=== PATIENT | male | born 1985 | race American Indian/Alaskan Native ===

== ENCOUNTER 2017-06-16 13:21 | Emergency (ER) | payer SELFPAY ==
[2017-06-16] MEDS ORDERED: DUONEB *Not for PRN Use IH ONE (14:24)
[2017-06-16] MEDS ORDERED: MOTRIN PO ONE (14:24)
--- NOTE | 2017-06-16 14:25 | Emergency Department Report ---
ED ENT HPI - General Chief complaint: Sore Throat Stated complaint: SORE THROAT Time Seen by Provider: 06/16/17 14:03 Source: patient Mode of arrival: Ambulatory Limitations: No Limitations - History of Present Illness Initial comments: 32-year-old male past medical history none presents with complaint of 5-6 days of sore throat and productive cough of yellowish brownish sputum. Patient is awake alert and oriented 3 fully lucid no audible wheezing or stridor. Subjective fever and chills reported. Denies sick contacts at home. States he has had a hoarse voice. MD complaint: sore throat - Related Data Previous Rx's Medication Instructions Recorded Last Taken Type Doxycycline [Vibramycin CAP] 100 mg PO Q12HR #14 capsule 05/17/15 Unknown Rx Famotidine [Pepcid] 20 mg PO DAILY #30 tablet 05/17/15 Unknown Rx Hyoscyamine Subl [Levsin Sl 0.125 0.125 mg SL Q8HR PRN #20 tab 05/17/15 Unknown Rx TAB] Mupirocin [Bactroban 2% OINT] 1 applic TP TID #1 tube 05/17/15 Unknown Rx Ondansetron [Zofran ODT TAB] 8 mg PO Q8HR PRN #20 tab.rapdis 05/17/15 Unknown Rx Albuterol Sulfate [Ventolin Hfa] 1 puff IH Q4H PRN #1 hfa.aer.ad 06/16/17 Unknown Rx Azithromycin [Zithromax Z-BIJU] 250 mg PO QDAY #1 pack 06/16/17 Unknown Rx Dextromethorphan/Benzocaine 1 each PO Q4H PRN #1 box 06/16/17 Unknown Rx [Cepacol Sorethroat-Cough Karo] Ibuprofen [Motrin] 800 mg PO Q8HR PRN #30 tablet 06/16/17 Unknown Rx Allergies Allergy/AdvReac Type Severity Reaction Status Date / Time coconut oil Allergy Rash Verified 06/16/17 13:46 ED Dental HPI - General Chief complaint: Sore Throat Stated complaint: SORE THROAT Time Seen by Provider: 06/16/17 14:03 Source: patient Mode of arrival: Ambulatory Limitations: No Limitations - Related Data Previous Rx's Medication Instructions Recorded Last Taken Type Doxycycline [Vibramycin CAP] 100 mg PO Q12HR #14 capsule 05/17/15 Unknown Rx Famotidine [Pepcid] 20 mg PO DAILY #30 tablet 05/17/15 Unknown Rx Hyoscyamine Subl [Levsin Sl 0.125 0.125 mg SL Q8HR PRN #20 tab 05/17/15 Unknown Rx TAB] Mupirocin [Bactroban 2% OINT] 1 applic TP TID #1 tube 05/17/15 Unknown Rx Ondansetron [Zofran ODT TAB] 8 mg PO Q8HR PRN #20 tab.rapdis 05/17/15 Unknown Rx Albuterol Sulfate [Ventolin Hfa] 1 puff IH Q4H PRN #1 hfa.aer.ad 06/16/17 Unknown Rx Azithromycin [Zithromax Z-BIJU] 250 mg PO QDAY #1 pack 06/16/17 Unknown Rx Dextromethorphan/Benzocaine 1 each PO Q4H PRN #1 box 06/16/17 Unknown Rx [Cepacol Sorethroat-Cough Karo] Ibuprofen [Motrin] 800 mg PO Q8HR PRN #30 tablet 06/16/17 Unknown Rx Allergies Allergy/AdvReac Type Severity Reaction Status Date / Time coconut oil Allergy Rash Verified 06/16/17 13:46 ED Review of Systems ROS: Stated complaint: SORE THROAT Other details as noted in HPI Constitutional: denies: chills, fever Eyes: denies: eye pain, eye discharge, vision change ENT: denies: ear pain, throat pain Respiratory: denies: cough, shortness of breath, wheezing Cardiovascular: denies: chest pain, palpitations Endocrine: no symptoms reported Gastrointestinal: denies: abdominal pain, nausea, diarrhea Genitourinary: denies: urgency, dysuria Musculoskeletal: denies: back pain, joint swelling, arthralgia Skin: denies: rash, lesions Neurological: denies: headache, weakness, paresthesias Psychiatric: denies: anxiety, depression Hematological/Lymphatic: denies: easy bleeding, easy bruising ED Past Medical Hx - Past Medical History Previous Medical History?: Yes Additional medical history: HS- Hidradenitis Suppurativa. Sciatica - Surgical History Past Surgical History?: Yes Hx Appendectomy: Yes - Social History Smoking Status: Never Smoker Substance Use Type: Marijuana - Medications Home Medications: Home Medications Medication Instructions Recorded Confirmed Last Taken Type Doxycycline [Vibramycin CAP] 100 mg PO Q12HR #14 capsule 05/17/15 Unknown Rx Famotidine [Pepcid] 20 mg PO DAILY #30 tablet 05/17/15 Unknown Rx Hyoscyamine Subl [Levsin Sl 0.125 0.125 mg SL Q8HR PRN #20 tab 05/17/15 Unknown Rx TAB] Mupirocin [Bactroban 2% OINT] 1 applic TP TID #1 tube 05/17/15 Unknown Rx Ondansetron [Zofran ODT TAB] 8 mg PO Q8HR PRN #20 tab.rapdis 05/17/15 Unknown Rx Albuterol Sulfate [Ventolin Hfa] 1 puff IH Q4H PRN #1 hfa.aer.ad 06/16/17 Unknown Rx Azithromycin [Zithromax Z-BIJU] 250 mg PO QDAY #1 pack 06/16/17 Unknown Rx Dextromethorphan/Benzocaine 1 each PO Q4H PRN #1 box 06/16/17 Unknown Rx [Cepacol Sorethroat-Cough Karo] Ibuprofen [Motrin] 800 mg PO Q8HR PRN #30 tablet 06/16/17 Unknown Rx ED Physical Exam - General Limitations: No Limitations General appearance: alert, in no apparent distress - Head Head exam: Present: atraumatic, normocephalic - Eye Eye exam: Present: normal appearance - ENT ENT exam: Present: mucous membranes moist - Neck Neck exam: Present: normal inspection - Respiratory Respiratory exam: Present: normal lung sounds bilaterally. Absent: respiratory distress - Cardiovascular Cardiovascular Exam: Present: regular rate, normal rhythm. Absent: systolic murmur, diastolic murmur, rubs, gallop - GI/Abdominal GI/Abdominal exam: Present: soft, normal bowel sounds - Rectal Rectal exam: Present: deferred - Extremities Exam Extremities exam: Present: normal inspection - Back Exam Back exam: Present: normal inspection - Neurological Exam Neurological exam: Present: alert, oriented X3 - Psychiatric Psychiatric exam: Present: normal affect, normal mood - Skin Skin exam: Present: warm, dry, intact, normal color. Absent: rash ED Course Vital Signs 06/16/17 06/16/17 06/16/17 13:42 14:50 14:51 Temperature 98.5 F Pulse Rate 89 Pulse Rate [ 88 Bilateral Upper Lobe] Respiratory 16 16 Rate Respiratory 20 Rate [Bilateral Upper Lobe] Blood Pressure 120/74 O2 Sat by Pulse 100 Oximetry 06/16/17 15:06 Temperature Pulse Rate Pulse Rate [ 89 Bilateral Upper Lobe] Respiratory Rate Respiratory 20 Rate [Bilateral Upper Lobe] Blood Pressure O2 Sat by Pulse Oximetry ED Medical Decision Making - Medical Decision Making A/P: Laryngitis, reactive airway disease 1-chest x-ray unremarkable, patient tolerating by mouth fluid and food without difficulty. Patient experienced significant relief of cough with nebulizer treatment. 2-short course Motrin, throat lozenges, albuterol inhaler, Z-Biju 3-follow-up with primary care doctor 4- vital signs stable for discharge Critical care attestation.: If time is entered above; I have spent that time in minutes in the direct care of this critically ill patient, excluding procedure time. ED Disposition Clinical Impression: Laryngitis Reactive airway disease Qualifiers: Asthma severity: mild Asthma persistence: intermittent Asthma complication type : with acute exacerbation Qualified Code(s): J45.21 - Mild intermittent asthma with (acute) exacerbation Disposition: - TO HOME OR SELFCARE Is pt being admited?: No Does the pt Need Aspirin: No Condition: Stable Instructions: Laryngitis (ED), Reactive Airways Disease (ED), Viral Syndrome ( ED) Prescriptions: Albuterol Sulfate [Ventolin Hfa] 1 puff IH Q4H PRN #1 hfa.aer.ad PRN Reason: Wheezing Azithromycin [Zithromax Z-BIJU] 250 mg PO QDAY #1 pack Dextromethorphan/Benzocaine [Cepacol Sorethroat-Cough Karo] 1 each PO Q4H PRN #1 box PRN Reason: Sore Throat Ibuprofen [Motrin] 800 mg PO Q8HR PRN #30 tablet PRN Reason: Pain Referrals: [facility] [Provider Group] - 3-5 Days Forms: Work/School Release Form(ED) Time of Disposition: 15:48
--- NOTE | 2017-06-16 14:40 | XRay Report ---
ROUTINE CHEST, TWO VIEWS: HISTORY: Worsening cough. The trachea, heart, mediastinal contour, lung cabral and bony thorax are unremarkable. IMPRESSION: Unremarkable chest x-ray.
[2017-06-16 16:16] VITALS: BP 128/70
== END 2017-06-16 16:15 | disposition home or self-care (01) ==
LOC: ED 13:21
DX: J45.21 Mild intermittent asthma with (acute) exacerbation (principal); J04.0 Acute laryngitis; F12.10 Cannabis abuse, uncomplicated; Z90.49 Acquired absence of other specified parts of digestive tract; Z91.018 Allergy to other foods
CPT/HCPCS: 71046; 87116; 87430; 94640

== ENCOUNTER 2017-09-01 12:58 | Emergency (ER) | payer OTHER ==
[2017-09-01 13:07] VITALS: BP 131/72
== END 2017-09-01 19:45 | disposition left against medical advice (07) ==
LOC: ED 12:58
DX: M25.519 Pain in unspecified shoulder (principal); M54.9 Dorsalgia, unspecified; Z53.21 Procedure and treatment not carried out due to patient leaving prior to being seen by health care provider

== ENCOUNTER 2019-03-15 09:28 | Emergency (ER) | payer OTHER ==
[2019-03-15] MEDS ORDERED: MORPHINE 4 MG/1 ML INJ IV ONE (10:00)
[2019-03-15] MEDS ORDERED: ONDANSETRON 4 MG/2 ML INJ IV ONE (10:00)
[2019-03-15] MEDS ORDERED: SODIUM CHLORIDE 0.9% 1000 ML 1,000 ML IV ONE (10:01)
--- NOTE | 2019-03-15 10:06 | Emergency Department Report ---
ED Abdominal Pain HPI - General Chief Complaint: Urogenital-Male Stated Complaint: STOMACH PAIN/TESTICLE PAIN Time Seen by Provider: 03/15/19 09:56 Source: patient Mode of arrival: Ambulatory Limitations: No Limitations - History of Present Illness Initial Comments: Patient is a 33 resolved male with no significant past medical history except for multiple hidradenitis. Patient presented to the ER complaining of abdominal pain, diffuse, crampy in nature associated with nausea and vomiting. Patient stated that he is unable to keep anything down since last night. Patient is also complaining of right testicular pain and swelling started last night. Patient denied any recent trauma or injury. Patient also denies any fever or chills. MD Complaint: abdominal pain -: This morning Location: diffuse Radiation: none Migration to: no migration Quality: sharp - Related Data Previous Rx's Medication Instructions Recorded Last Taken Type DOXYCYCLINE Hyclate [Vibramycin 100 mg PO Q12HR #14 capsule 05/17/15 Unknown Rx CAP] Famotidine [Pepcid] 20 mg PO DAILY #30 tablet 05/17/15 Unknown Rx Hyoscyamine Subl [Levsin Sl 0.125 0.125 mg SL Q8HR PRN #20 tab 05/17/15 Unknown Rx TAB] Mupirocin [Bactroban 2% OINT] 1 applic TP TID #1 tube 05/17/15 Unknown Rx Ondansetron [Zofran ODT TAB] 8 mg PO Q8HR PRN #20 tab.rapdis 05/17/15 Unknown Rx Albuterol Sulfate [Ventolin Hfa] 1 puff IH Q4H PRN #1 hfa.aer.ad 06/16/17 Unknown Rx Azithromycin [Zithromax Z-BIJU] 250 mg PO QDAY #1 pack 06/16/17 Unknown Rx Dextromethorphan/Benzocaine 1 each PO Q4H PRN #1 box 06/16/17 Unknown Rx [Cepacol Sorethroat-Cough Karo] Ibuprofen [Motrin] 800 mg PO Q8HR PRN #30 tablet 06/16/17 Unknown Rx Allergies Allergy/AdvReac Type Severity Reaction Status Date / Time coconut oil Allergy Rash Verified 09/01/17 13:04 ED Review of Systems ROS: Stated complaint: STOMACH PAIN/TESTICLE PAIN Other details as noted in HPI Comment: All other systems reviewed and negative Constitutional: denies: chills, fever Respiratory: denies: cough, shortness of breath Gastrointestinal: abdominal pain, nausea, vomiting. denies: diarrhea, constipation, hematemesis, melena, hematochezia Genitourinary: testicular pain. denies: urgency, dysuria, frequency, hematuria, discharge, testicular mass Musculoskeletal: denies: back pain Neurological: denies: headache, weakness ED Past Medical Hx - Past Medical History Previous Medical History?: Yes Additional medical history: HS- Hidradenitis Suppurativa. Sciatica - Surgical History Past Surgical History?: Yes Hx Appendectomy: Yes - Social History Smoking Status: Current Every Day Smoker Substance Use Type: Marijuana - Medications Home Medications: Home Medications Medication Instructions Recorded Confirmed Last Taken Type DOXYCYCLINE Hyclate [Vibramycin 100 mg PO Q12HR #14 capsule 05/17/15 Unknown Rx CAP] Famotidine [Pepcid] 20 mg PO DAILY #30 tablet 05/17/15 Unknown Rx Hyoscyamine Subl [Levsin Sl 0.125 0.125 mg SL Q8HR PRN #20 tab 05/17/15 Unknown Rx TAB] Mupirocin [Bactroban 2% OINT] 1 applic TP TID #1 tube 05/17/15 Unknown Rx Ondansetron [Zofran ODT TAB] 8 mg PO Q8HR PRN #20 tab.rapdis 05/17/15 Unknown Rx Albuterol Sulfate [Ventolin Hfa] 1 puff IH Q4H PRN #1 hfa.aer.ad 06/16/17 Unknown Rx Azithromycin [Zithromax Z-BIJU] 250 mg PO QDAY #1 pack 06/16/17 Unknown Rx Dextromethorphan/Benzocaine 1 each PO Q4H PRN #1 box 06/16/17 Unknown Rx [Cepacol Sorethroat-Cough Karo] Ibuprofen [Motrin] 800 mg PO Q8HR PRN #30 tablet 06/16/17 Unknown Rx ED Physical Exam - General Limitations: No Limitations General appearance: alert, in no apparent distress - Head Head exam: Present: atraumatic, normocephalic, normal inspection - Eye Eye exam: Present: normal appearance - ENT ENT exam: Present: normal exam, normal orophraynx, mucous membranes moist - Neck Neck exam: Present: normal inspection, full ROM. Absent: tenderness, meningismus, lymphadenopathy, thyromegaly - Respiratory Respiratory exam: Present: normal lung sounds bilaterally - Cardiovascular Cardiovascular Exam: Present: regular rate, normal rhythm, normal heart sounds - GI/Abdominal GI/Abdominal exam: Present: soft, normal bowel sounds. Absent: distended, tenderness, guarding, rebound, rigid, organomegaly, mass, bruit, pulsatile mass, hernia - exam: Present: normal inspection, testicular tenderness (right testicular tenderness). Absent: urethral discharge, scrotal swelling, vertical testicular lie External exam: Absent: erythema, swelling, lesions, lacerations, ecchymosis, bleeding - Extremities Exam Extremities exam: Present: normal inspection, full ROM, normal capillary refill. Absent: tenderness, pedal edema, joint swelling, calf tenderness - Back Exam Back exam: Present: normal inspection, full ROM. Absent: CVA tenderness (R), CVA tenderness (L), muscle spasm, paraspinal tenderness, vertebral tenderness - Neurological Exam Neurological exam: Present: alert, oriented X3, CN II-XII intact, normal gait, reflexes normal - Skin Skin exam: Present: warm, intact, normal color ED Course Vital Signs 03/15/19 03/15/19 09:36 11:39 Temperature 98.6 F Pulse Rate 87 61 Respiratory 18 16 Rate Blood Pressure 124/71 Blood Pressure 125/71 [Left] O2 Sat by Pulse 98 95 Oximetry ED Medical Decision Making - Lab Data Result diagrams: 03/15/19 10:31 03/15/19 10:31 - Radiology Data Radiology results: report reviewed - Medical Decision Making Patient is a 33 resolved male with no significant past medical history except for multiple hidradenitis. Patient presented to the ER complaining of abdominal pain, diffuse, crampy in nature associated with nausea and vomiting. Patient stated that he is unable to keep anything down since last night. Patient is also complaining of right testicular pain and swelling started last night. Patient denied any recent trauma or injury. Patient also denies any fever or chills. Labs reviewed and is unremarkable. Testicular ultrasound showed a right epididymitis. Patient given Rocephin 250 mg IM and Zithromax. Patient also given a prescription for ciprofloxacin and advised to follow-up with his primary care physician in the next 2-3 days and to return to the ER if he develops any new symptoms. Critical care attestation.: If time is entered above; I have spent that time in minutes in the direct care of this critically ill patient, excluding procedure time. ED Disposition Clinical Impression: Abdominal pain, Acute epididymitis Disposition: TO HOME OR SELFCARE Is pt being admited?: No Condition: Stable Instructions: Epididymitis (ED) Referrals: [facility] [Provider Group] - 3-5 Days Forms: STI Treatment and Prevention
[2019-03-15 10:41] LABS: Basophils # (Auto) 0.1 K/mm3 (0.0-0.1); Basophils % (Auto) 0.5 % (0.0-1.8); Eosinophils # (Auto) 0.1 K/mm3 (0.0-0.4); Eosinophils % (Auto) 0.6 % (0.0-4.3); Hemoglobin 12.6 gm/dl (11.8-15.2); Lymphocytes # (Auto) 3.2 K/mm3 (1.2-5.4); Lymphocytes % (Auto) 30.4 % (13.4-35.0); Mean Corpuscular HGB Conc 33 % (32-34); Mean Corpuscular Volume 84 fl (84-94); Monocytes # (Auto) 0.8 K/mm3 (0.0-0.8); Monocytes % (Auto) 7.2 % (0.0-7.3); Platelet Count 265 K/mm3 (140-440)
[2019-03-15 11:17] LABS: Alanine Aminotransferase 6 units/L (7-56); Albumin 3.8 g/dL (3.9-5); BUN/Creatinine Ratio 13; Blood Urea Nitrogen 10 mg/dL (9-20); Calcium 9.1 mg/dL (8.4-10.2); Hemolysis Index 24
[2019-03-15 11:18] LABS: Bilirubin,Direct < 0.2 mg/dL (0-0.2)
--- NOTE | 2019-03-15 12:05 | Ultrasound Report ---
ULTRASOUND TESTICULAR DOPPLER COMPLETE HISTORY: Right testicular pain and swelling. TECHNIQUE: Grayscale ultrasound with color and spectral Doppler interrogation. COMPARISON: None. FINDINGS: The right testicle measures 3.3 x 2.1 x 2.5 cm. The left testicle measures 3.9 x 1.6 x 2.1 cm. Both t esticles are slightly heterogeneous but no evidence for cyst, mass or calcifications. Spectral Dopple r waveforms demonstrate arterial flow to both testicles. The right epididymis is enlarged, heterogeneous and hyperemic on color Doppler interrogation. The lef t epididymis is normal. Moderate right hydrocele containing a few fine internal septation is noted. IMPRESSION: Right epididymitis. Signer Name: Edgar Rincon Jr, MD Signed: 03/15/2019 12:00 PM Workstation Name: [id number]
[2019-03-15] MEDS ORDERED: AZITHROMYCIN 1 GM ORAL PWDR PACKET PO ONE (12:14)
[2019-03-15] MEDS ORDERED: LIDOCAINE-MPF (1%) 10 MG/1 ML VIAL 5 ML INFILTRATI ONE (12:14)
[2019-03-15 13:27] LABS: Bacteria,Urine 1+ /HPF (Negative); Bilirubin,Urine NEG (Negative); Blood,Urine SM (Negative); Color,Urine Yellow (Yellow); Mucus,Urine 2+ /HPF; Protein,Urine <15 mg/dL mg/dL (Negative); Urobilinogen,Urine < 2.0 mg/dL (<2.0)
[2019-03-15 14:03] VITALS: BP 122/74
== END 2019-03-15 14:09 | disposition home or self-care (01) ==
LOC: ED 09:28
DX: N45.1 Epididymitis (principal); M54.30 Sciatica, unspecified side; R11.2 Nausea with vomiting, unspecified; F17.200 Nicotine dependence, unspecified, uncomplicated; F12.10 Cannabis abuse, uncomplicated; Z90.49 Acquired absence of other specified parts of digestive tract; Z79.1 Long term (current) use of non-steroidal anti-inflammatories (NSAID); Z79.899 Other long term (current) drug therapy; Z91.018 Allergy to other foods
CPT/HCPCS: 36415; 80048; 80076; 81001; 83690; 85025; 93975; 96361; 96372; 96374; 96375; 99284; J0696; J2270; J2405; J7030

== ENCOUNTER 2019-05-30 18:46 | Emergency (ER) | payer OTHER ==
--- NOTE | 2019-05-30 19:24 | Emergency Department Report ---
Chief Complaint: Laceration/Recheck/Suture Stated Complaint: SUTURE REMOVAL Time Seen by Provider: 05/30/19 19:20 - HPI History of Present Illness: This is a 34-year-old male nontoxic, well in appearance with no signs of distress presents for suture removal. Patient stated was seen in [place] ED and stitched has been placed. Patient denies any swelling, pus or drainage. Patient denies any cellulitis. Denies any symptoms. Patient denies lecchymosis, chest pain, short of breath, headache, blurry vision, fever, chills, stiff neck, decreased range of motion, bladder or bowel instability, diaphoresis, nausea, vomiting, abdominal pain, joint pain or swelling, visual changes, chest wall tenderness, numbness or tingling sensation extremity. - Exam Physical Exam: normal healing sutures noted to forehead. Well healing. No cellulitis. No swelling. No pus or drainage. Normal exam.. MSE screening note: Focused history and physical exam performed. Due to findings the following was ordered: ED Medical Decision Making - Medical Decision Making 34-year-old male that presents with suture removal. Patient is not sure how many sutures are placed. Well healing. Normal edxam. Patient was instructed to return to [place] ED for sutures removal as they know how many are placed and how it is sutured. Patient was instructed to Follow-up with a primary care doctor in 3-5 days or if symptoms worsen and continue return to emergency room as soon as possible. At time of discharge, the patient does not seem toxic or ill in appearance. No acute signs of distress noted. Patient agrees to discharge treatment plan of care. No further questions noted by the patient. ED Disposition for MSE Clinical Impression: Encounter for removal of sutures Disposition: Z-07 MED SCREENING EXAM-LEFT Is pt being admited?: No Does the pt Need Aspirin: No Condition: Stable Additional Instructions: Return to [place] ED for suture removal. Follow-up with a primary care doctor in 3-5 days or if symptoms worsen and continue return to emergency room as soon as possible. Referrals: PRIMARY [facility] [Referring] - 3-5 Days TANIYA BENNETT MD [Staff Physician] - 3-5 Days [facility] [Outside] - 3-5 Days
== END 2019-05-30 19:30 | disposition left against medical advice (07) ==
LOC: ED 18:46
DX: T14.8XXD Other injury of unspecified body region, subsequent encounter (principal); Z48.02 Encounter for removal of sutures

== ENCOUNTER 2020-09-17 18:00 | Emergency (ER) | payer OTHER ==
[2020-09-17 20:31] VITALS: BP 144/68
--- NOTE | 2020-09-17 20:44 | Emergency Department Report ---
- General Chief complaint: Skin/Abscess/Foreign Body Stated complaint: ABSCESS ON BACK OF HEAD Time Seen by Provider: 09/17/20 20:36 Source: patient Mode of arrival: Ambulatory Limitations: No Limitations - History of Present Illness Initial comments: Patient is a 35-year-old male presents emergency room complaints of multiple abscesses to his posterior scalp that worsened in the last couple weeks. He states occasionally they do open and drain. He has a history of hidradenitis suppurativa and states that he has a auricular therapist. He reports he has an appointment with his auricular therapist and primary care doctor next week. He denies any fever, nausea, vomiting, diarrhea, chills. He states he does wash with Hibiclens. No other past medical history. No medication allergies. - Related Data Previous Rx's Medication Instructions Recorded Last Taken Type DOXYCYCLINE Hyclate [Vibramycin 100 mg PO Q12HR #14 capsule 05/17/15 Unknown Rx CAP] Famotidine [Pepcid] 20 mg PO DAILY #30 tablet 05/17/15 Unknown Rx Hyoscyamine Subl [Levsin Sl 0.125 0.125 mg SL Q8HR PRN #20 tab 05/17/15 Unknown Rx TAB] Mupirocin [Bactroban 2% OINT] 1 applic TP TID #1 tube 05/17/15 Unknown Rx Ondansetron [Zofran ODT TAB] 8 mg PO Q8HR PRN #20 tab.rapdis 05/17/15 Unknown Rx Albuterol Sulfate [Ventolin Hfa] 1 puff IH Q4H PRN #1 hfa.aer.ad 06/16/17 Unknown Rx Azithromycin [Zithromax Z-BIJU] 250 mg PO QDAY #1 pack 06/16/17 Unknown Rx Dextromethorphan/Benzocaine 1 each PO Q4H PRN #1 box 06/16/17 Unknown Rx [Cepacol Sorethroat-Cough Karo] Ibuprofen [Motrin] 800 mg PO Q8HR PRN #30 tablet 06/16/17 Unknown Rx Ciprofloxacin HCl [Ciprofloxacin 500 mg PO Q12HR #20 tab 03/15/19 Unknown Rx TAB] Naproxen [Naprosyn] 500 mg PO BID #14 tablet 03/15/19 Unknown Rx Mupirocin [Bactroban 2% OINT] 1 applic TP TID #1 tube 09/17/20 Unknown Rx Sulfamethoxazole/Trimethoprim 1 each PO BID 7 Days #14 tablet 09/17/20 Unknown Rx [Bactrim DS TAB] Allergies Allergy/AdvReac Type Severity Reaction Status Date / Time coconut oil Allergy Rash Verified 09/01/17 13:04 Abscess Boil HPI - HPI Chief Complaint: Skin/Abscess/Foreign Body Stated Complaint: ABSCESS ON BACK OF HEAD Time Seen by Provider: 09/17/20 20:36 Home Medications: Previous Rx's Medication Instructions Recorded Last Taken Type DOXYCYCLINE Hyclate [Vibramycin 100 mg PO Q12HR #14 capsule 05/17/15 Unknown Rx CAP] Famotidine [Pepcid] 20 mg PO DAILY #30 tablet 05/17/15 Unknown Rx Hyoscyamine Subl [Levsin Sl 0.125 0.125 mg SL Q8HR PRN #20 tab 05/17/15 Unknown Rx TAB] Mupirocin [Bactroban 2% OINT] 1 applic TP TID #1 tube 05/17/15 Unknown Rx Ondansetron [Zofran ODT TAB] 8 mg PO Q8HR PRN #20 tab.rapdis 05/17/15 Unknown Rx Albuterol Sulfate [Ventolin Hfa] 1 puff IH Q4H PRN #1 hfa.aer.ad 06/16/17 Unknown Rx Azithromycin [Zithromax Z-BIJU] 250 mg PO QDAY #1 pack 06/16/17 Unknown Rx Dextromethorphan/Benzocaine 1 each PO Q4H PRN #1 box 06/16/17 Unknown Rx [Cepacol Sorethroat-Cough Karo] Ibuprofen [Motrin] 800 mg PO Q8HR PRN #30 tablet 06/16/17 Unknown Rx Ciprofloxacin HCl [Ciprofloxacin 500 mg PO Q12HR #20 tab 03/15/19 Unknown Rx TAB] Naproxen [Naprosyn] 500 mg PO BID #14 tablet 03/15/19 Unknown Rx Mupirocin [Bactroban 2% OINT] 1 applic TP TID #1 tube 09/17/20 Unknown Rx Sulfamethoxazole/Trimethoprim 1 each PO BID 7 Days #14 tablet 09/17/20 Unknown Rx [Bactrim DS TAB] Allergies/Adverse Reactions: Allergies Allergy/AdvReac Type Severity Reaction Status Date / Time coconut oil Allergy Rash Verified 09/01/17 13:04 ED Review of Systems ROS: Stated complaint: ABSCESS ON BACK OF HEAD Other details as noted in HPI Comment: All other systems reviewed and negative ED Past Medical Hx - Past Medical History Additional medical history: HS- Hidradenitis Suppurativa. Sciatica - Surgical History Hx Appendectomy: Yes - Social History Smoking Status: Former Smoker Substance Use Type: Marijuana - Medications Home Medications: Home Medications Medication Instructions Recorded Confirmed Last Taken Type DOXYCYCLINE Hyclate [Vibramycin 100 mg PO Q12HR #14 capsule 05/17/15 Unknown Rx CAP] Famotidine [Pepcid] 20 mg PO DAILY #30 tablet 05/17/15 Unknown Rx Hyoscyamine Subl [Levsin Sl 0.125 0.125 mg SL Q8HR PRN #20 tab 05/17/15 Unknown Rx TAB] Mupirocin [Bactroban 2% OINT] 1 applic TP TID #1 tube 05/17/15 Unknown Rx Ondansetron [Zofran ODT TAB] 8 mg PO Q8HR PRN #20 tab.rapdis 05/17/15 Unknown Rx Albuterol Sulfate [Ventolin Hfa] 1 puff IH Q4H PRN #1 hfa.aer.ad 06/16/17 Unknown Rx Azithromycin [Zithromax Z-BIJU] 250 mg PO QDAY #1 pack 06/16/17 Unknown Rx Dextromethorphan/Benzocaine 1 each PO Q4H PRN #1 box 06/16/17 Unknown Rx [Cepacol Sorethroat-Cough Karo] Ibuprofen [Motrin] 800 mg PO Q8HR PRN #30 tablet 06/16/17 Unknown Rx Ciprofloxacin HCl [Ciprofloxacin 500 mg PO Q12HR #20 tab 03/15/19 Unknown Rx TAB] Naproxen [Naprosyn] 500 mg PO BID #14 tablet 03/15/19 Unknown Rx Mupirocin [Bactroban 2% OINT] 1 applic TP TID #1 tube 09/17/20 Unknown Rx Sulfamethoxazole/Trimethoprim 1 each PO BID 7 Days #14 tablet 09/17/20 Unknown Rx [Bactrim DS TAB] ED Physical Exam - General Limitations: No Limitations General appearance: alert, in no apparent distress - Head Head exam: Present: other (multiple areas of induration present to the posterior scalp, several small openings, no active drainage, no significant surrounding erythema, no central area of fluctuance, no blistering or skin denuding, no necrosis) - Eye Eye exam: Present: normal appearance - ENT ENT exam: Present: mucous membranes moist - Respiratory Respiratory exam: Absent: respiratory distress, accessory muscle use - Neurological Exam Neurological exam: Present: alert, oriented X3 - Psychiatric Psychiatric exam: Present: normal affect, normal mood - Skin Skin exam: Present: warm, dry ED Course Vital Signs 09/17/20 20:29 Temperature 98.5 F Pulse Rate 99 H Respiratory 17 Rate Blood Pressure 144/68 O2 Sat by Pulse 99 Oximetry ED Medical Decision Making - Medical Decision Making Patient is a 35-year-old male presents emergency room complaints of multiple abscesses to his posterior scalp that worsened in the last couple weeks. He states occasionally they do open and drain. He has a history of hidradenitis suppurativa and states that he has a auricular therapist. He reports he has an appointment with his auricular therapist and primary care doctor next week. He denies any fever, nausea, vomiting, diarrhea, chills. He states he does wash with Hibiclens. No other past medical history. No medication allergies. Vitals are stable. On exam:multiple areas of induration present to the posterior scalp, several small openings, no active drainage, no significant surrounding erythema, no central area of fluctuance, no blistering or skin denuding, no necrosis. Examination appears consistent with hidradenitis, no signs of drainable abscess at this time. Patient given prescription for medication. Advised patient Please use medication as prescribed. Use warm compresses. Continue to wash with Hibiclens. Follow-up with your primary care doctor. Follow-up with your auricular therapist. Return to emergency room for new worsening symptoms. Critical care attestation.: If time is entered above; I have spent that time in minutes in the direct care of this critically ill patient, excluding procedure time. ED Disposition Clinical Impression: Hidradenitis suppurativa Disposition: - TO HOME OR SELFCARE Is pt being admited?: No Does the pt Need Aspirin: No Condition: Stable Instructions: Hidradenitis Suppurativa Additional Instructions: Please use medication as prescribed. Use warm compresses. Continue to wash with Hibiclens. Follow-up with your primary care doctor. Follow-up with your auricular therapist. Return to emergency room for new worsening symptoms. Prescriptions: Sulfamethoxazole/Trimethoprim [Bactrim DS TAB] 1 each PO BID 7 Days #14 tablet Mupirocin [Bactroban 2% OINT] 1 applic TP TID #1 tube Referrals: your, primary care doctor [Other] - 2-3 Days your, auricular therapist [Other] - 2-3 Days Time of Disposition: 20:43 Print Language: BARBADIAN
== END 2020-09-17 22:09 | disposition home or self-care (01) ==
LOC: ED 18:00
DX: L73.2 Hidradenitis suppurativa (principal); F12.90 Cannabis use, unspecified, uncomplicated; Z79.899 Other long term (current) drug therapy; Z90.49 Acquired absence of other specified parts of digestive tract; Z87.891 Personal history of nicotine dependence; Z91.048 Other nonmedicinal substance allergy status
CPT/HCPCS: 99282

== ENCOUNTER 2020-09-29 02:17 | Emergency (ER) | payer OTHER ==
[2020-09-29] MEDS ORDERED: diphenhydrAMINE 50 MG/ML VIAL IV ONE (03:42)
[2020-09-29] MEDS ORDERED: FAMOTIDINE 20 MG/2 ML INJ IV ONE (03:42)
[2020-09-29] MEDS ORDERED: methylPREDNISolone Sod Succinate 125 MG/2 ML INJ IV ONE (03:42)
--- NOTE | 2020-09-29 03:45 | Event Note ---
ED Screening Note Date of service: 09/29/20 Time: 03:43 ED Screening Note: Patient is a 35-year-old -[place] male with no past medical history presents to the ED with complaint of acute onset persistent significantly swollen upper lip for the last 2 hours. Patient states that he went to sleep after eating a meal of [place] food and woke up 2 hours ago with extensively swollen upper lip and decided come to the ED for evaluation. Patient denies shortness of breath, dysphagia, dysphonia, fever, chills, tongue swelling, nasal and sinus congestion, nausea, vomiting, itching, rashes, abdominal pain, diarrhea or cough This initial assessment/diagnostic orders/clinical plan/treatment(s) is/are subject to change based on patients health status, clinical progression and re- assessment by fellow clinical providers in the ED. Further treatment and workup at subsequent clinical providers discretion. Patient/guardian urged not to elope from the ED as their condition may be serious if not clinically assessed and managed. Initial orders include: Saline lock; Solu-Medrol 125 mg IV x1; Benadryl 25 mg IV x1; Pepcid 20 mg IV x1
--- NOTE | 2020-09-29 07:41 | Emergency Department Report ---
ED Allergic Reaction HPI - General Chief complaint: Allergic Reaction Stated complaint: TOP LIP IS SWOLLEN Time Seen by Provider: 09/29/20 07:16 Source: patient Mode of arrival: Ambulatory Limitations: No Limitations - History of Present Illness Initial Comments: Chief complaint lip swelling HPI: This is a healthy 35-year-old male with history of hidradenitis and sciatica who presents with lip swelling. Patient made solid food last night fried chicken, greens in [place] toes. He awakened in the morning with lip tingling swelling. He denies difficulty with swallowing. Denies shortness of breath. Denies rash. Denies syncope or dizziness. No previous history of similar allergic reaction. No history of drug allergy. MD Complaint: other (Lip swelling) -: Gradual, Last night (In the middle the night) Exposure: food (Possibly food) Symptoms: lip swelling Severity: mild Treatment Prior to Arrival: benadryl (Patient took 1 dose of Benadryl prior to arrival) Previous Allergy History: none - Related Data Previous Rx's Medication Instructions Recorded Last Taken Type DOXYCYCLINE Hyclate [Vibramycin 100 mg PO Q12HR #14 capsule 05/17/15 Unknown Rx CAP] Famotidine [Pepcid] 20 mg PO DAILY #30 tablet 05/17/15 Unknown Rx Hyoscyamine Subl [Levsin Sl 0.125 0.125 mg SL Q8HR PRN #20 tab 05/17/15 Unknown Rx TAB] Mupirocin [Bactroban 2% OINT] 1 applic TP TID #1 tube 05/17/15 Unknown Rx Ondansetron [Zofran ODT TAB] 8 mg PO Q8HR PRN #20 tab.rapdis 05/17/15 Unknown Rx Albuterol Sulfate [Ventolin Hfa] 1 puff IH Q4H PRN #1 hfa.aer.ad 06/16/17 Unknown Rx Azithromycin [Zithromax Z-DARIUS] 250 mg PO QDAY #1 pack 06/16/17 Unknown Rx Dextromethorphan/Benzocaine 1 each PO Q4H PRN #1 box 06/16/17 Unknown Rx [Cepacol Sorethroat-Cough Karo] Ibuprofen [Motrin] 800 mg PO Q8HR PRN #30 tablet 06/16/17 Unknown Rx Ciprofloxacin HCl [Ciprofloxacin 500 mg PO Q12HR #20 tab 03/15/19 Unknown Rx TAB] Naproxen [Naprosyn] 500 mg PO BID #14 tablet 03/15/19 Unknown Rx Mupirocin [Bactroban 2% OINT] 1 applic TP TID #1 tube 09/17/20 Unknown Rx Sulfamethoxazole/Trimethoprim 1 each PO BID 7 Days #14 tablet 09/17/20 Unknown Rx [Bactrim DS TAB] Cetirizine HCl [ZyrTEC 10mg cap] 10 mg PO DAILY 5 Days #5 capsule 09/29/20 Unknown Rx EPINEPHrine [Epipen 2-Darius] 0.3 mg IJ ONCE PRN #1 unit 09/29/20 Unknown Rx Famotidine [Pepcid] 20 mg PO BID 5 Days #10 tablet 09/29/20 Unknown Rx Prednisone [predniSONE 10 mg 10 mg PO .TAPER #1 tab.ds.pk 09/29/20 Unknown Rx (6-Day Pack, 21 Tabs)] Allergies Allergy/AdvReac Type Severity Reaction Status Date / Time coconut oil Allergy Rash Verified 09/01/17 13:04 ED Review of Systems ROS: Stated complaint: TOP LIP IS SWOLLEN Other details as noted in HPI Comment: All other systems reviewed and negative Constitutional: denies: fever, malaise Respiratory: denies: cough, shortness of breath Cardiovascular: denies: chest pain Gastrointestinal: denies: abdominal pain, nausea, vomiting Skin: denies: rash, lesions ED Past Medical Hx - Past Medical History Previous Medical History?: No Additional medical history: HS- Hidradenitis Suppurativa. Sciatica - Surgical History Past Surgical History?: Yes Hx Appendectomy: Yes Additional Surgical History: APENDECTOMY - Family History Family history: hypertension - Social History Smoking Status: Never Smoker Substance Use Type: None - Medications Home Medications: Home Medications Medication Instructions Recorded Confirmed Last Taken Type DOXYCYCLINE Hyclate [Vibramycin 100 mg PO Q12HR #14 capsule 05/17/15 Unknown Rx CAP] Famotidine [Pepcid] 20 mg PO DAILY #30 tablet 05/17/15 Unknown Rx Hyoscyamine Subl [Levsin Sl 0.125 0.125 mg SL Q8HR PRN #20 tab 05/17/15 Unknown Rx TAB] Mupirocin [Bactroban 2% OINT] 1 applic TP TID #1 tube 02/06/16 Unknown Rx Ondansetron [Zofran ODT TAB] 8 mg PO Q8HR PRN #20 tab.rapdis 05/17/15 Unknown Rx Albuterol Sulfate [Ventolin Hfa] 1 puff IH Q4H PRN #1 hfa.aer.ad 06/16/17 Unknown Rx Azithromycin [Zithromax Z-DARIUS] 250 mg PO QDAY #1 pack 06/16/17 Unknown Rx Dextromethorphan/Benzocaine 1 each PO Q4H PRN #1 box 06/16/17 Unknown Rx [Cepacol Sorethroat-Cough Karo] Ibuprofen [Motrin] 800 mg PO Q8HR PRN #30 tablet 06/16/17 Unknown Rx Ciprofloxacin HCl [Ciprofloxacin 500 mg PO Q12HR #20 tab 03/15/19 Unknown Rx TAB] Naproxen [Naprosyn] 500 mg PO BID #14 tablet 03/15/19 Unknown Rx Mupirocin [Bactroban 2% OINT] 1 applic TP TID #1 tube 09/17/20 Unknown Rx Sulfamethoxazole/Trimethoprim 1 each PO BID 7 Days #14 tablet 09/17/20 Unknown Rx [Bactrim DS TAB] Cetirizine HCl [ZyrTEC 10mg cap] 10 mg PO DAILY 5 Days #5 capsule 09/29/20 Unknown Rx EPINEPHrine [Epipen 2-Darius] 0.3 mg IJ ONCE PRN #1 unit 09/29/20 Unknown Rx Famotidine [Pepcid] 20 mg PO BID 5 Days #10 tablet 09/29/20 Unknown Rx Prednisone [predniSONE 10 mg 10 mg PO .TAPER #1 tab.ds.pk 09/29/20 Unknown Rx (6-Day Pack, 21 Tabs)] ED Physical Exam - General Limitations: No Limitations General appearance: alert, in no apparent distress - Head Head exam: Present: atraumatic, normocephalic - Eye Eye exam: Present: normal appearance - ENT ENT exam: Present: mucous membranes moist, other (Edematous lips normal tongue size normal voice no abnormality of the oropharynx otherwise) - Neck Neck exam: Present: normal inspection - Respiratory Respiratory exam: Present: normal lung sounds bilaterally. Absent: respiratory distress, wheezes, rales, stridor - Cardiovascular Cardiovascular Exam: Present: regular rate, normal rhythm, normal heart sounds. Absent: systolic murmur, diastolic murmur, rubs, gallop - GI/Abdominal GI/Abdominal exam: Present: soft, normal bowel sounds. Absent: distended, tenderness, guarding, rebound - Rectal Rectal exam: Present: deferred - Extremities Exam Extremities exam: Present: normal inspection - Neurological Exam Neurological exam: Present: alert, oriented X3 - Psychiatric Psychiatric exam: Present: normal affect, normal mood - Skin Skin exam: Present: warm, dry, intact, normal color. Absent: rash ED Course Vital Signs 09/29/20 03:23 Temperature 98.9 F Pulse Rate 84 Respiratory 18 Rate Blood Pressure 110/73 O2 Sat by Pulse 100 Oximetry ED Medical Decision Making - Medical Decision Making Angioedema, lip swelling allergic reaction possibly due to food. Patient given Solu-Medrol, diphenhydramine, famotidine in the emergency department. I gave patient extensive verbal education regarding EpiPen use. I strongly encouraged him to keep the EpiPen on his person especially over the next several months. Also highly encouraged evaluation by an nitric acid plant operator. He understands ED return precautions Prescribed cetirizine, famotidine, prednisone taper. Also prescribed EpiPen. Referred to nitric acid plant operator. Discharged home. Critical care attestation.: If time is entered above; I have spent that time in minutes in the direct care of this critically ill patient, excluding procedure time. ED Disposition Clinical Impression: Angioedema of lips, Allergic reaction to food Disposition: DC-01 TO HOME OR SELFCARE Is pt being admited?: No Does the pt Need Aspirin: No Condition: Stable Instructions: Angioedema, [id number], How to Use an Auto-Injector Pen Prescriptions: EPINEPHrine [Epipen 2-Darius] 0.3 mg IJ ONCE PRN #1 unit PRN Reason: severe allergic reaction Famotidine [Pepcid] 20 mg PO BID 5 Days #10 tablet Prednisone [predniSONE 10 mg (6-Day Pack, 21 Tabs)] 10 mg PO .TAPER #1 tab.ds.pk Cetirizine HCl [ZyrTEC 10mg cap] 10 mg PO DAILY 5 Days #5 capsule Referrals: DAIANA COTTER MD [Referring] - 3-5 Days ANJELICA BOLTON MD [Referring] - 3-5 Days ALEJANDRO TOLENTINO MD [Referring] - 3-5 Days Forms: Work/School Release Form(ED)
[2020-09-29 08:12] VITALS: BP 110/48
== END 2020-09-29 08:16 | disposition home or self-care (01) ==
LOC: ED 02:17
DX: T78.3XXA Angioneurotic edema, initial encounter (principal); K13.0 Diseases of lips; T78.1XXA Other adverse food reactions, not elsewhere classified, initial encounter; Z90.49 Acquired absence of other specified parts of digestive tract; Z98.890 Other specified postprocedural states; Z91.018 Allergy to other foods; Z79.899 Other long term (current) drug therapy; X58.XXXA Exposure to other specified factors, initial encounter
CPT/HCPCS: 96374; 96375; 99282; J1200; J2930